=== PATIENT | male | born 1950 | race Caucasian/White ===

== ENCOUNTER 2019-02-25 09:36 | Day surgery (SDC) | payer OTHER, SELFPAY ==
--- NOTE | 2019-02-25 | PATH_ITS ---
[facility] Accession Number: [id number] . 01 Material submitted: . body - POLYP AT 35 . 01 Clinical history: . SCREENING COLONOSCOPY . 02 Diagnosis: Colon, Polyp at 35, Biopsy: Tubular adenoma. MRV/02/26/2019 . 02 Electronically signed: . Mackenzie Amin MD, Pathologist NPI- [id number] . 01 Gross description: . POLYP AT 35: Received in formalin is 1 fragment(s) of russ, soft tissue measuring 0.6 x 0.5 x 0.5 cm which is entirely submitted and submitted entirely in 1 cassette(s) /DMC /DMC . 02 Pathologist provided ICD-10: D12.6 . 02 CPT . 005359 Performed at: 01 [facility] [address] [place] [address], [place], [place] [id number] MD Clint Sigala MD Phone: [phone] Performed at: 02 [facility] [place] [address] [place], [place] [id number] MD Mackenzie Amin MD Phone: [phone]
[2019-02-25 10:20] VITALS: BMI 26.6
[2019-02-25 10:24] VITALS: BP 126/75; PULSE 58; RESP 16; TEMP 36.6; O2SAT 96
[2019-02-25] MEDS: SODIUM CHLORIDE 0.9% 1,000 ML 200 ML IV (10:29)
--- NOTE | 2019-02-25 10:43 | PM.HP.1 ---
History of Present Illness Date Patient Seen: 02/25/19 Time Patient Seen: 10:43 Chief complaint: [id number] SCREENING COLONOSCOPY Narrative: Patient here for screening colonoscopy. Last exam was 6 years ago. He has a history of polyps. 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 Patient History Medical History Depression (Acute) Diverticulosis (Acute) Murmur, cardiac (Acute) Spinal cord injury (Acute) Urinary frequency (Acute) Surgical History H/O spinal fusion (Acute) Social History household members: spouse Family & Social History Social History: household members spouse Meds Home Medications Medication Instructions Recorded Confirmed Type atorvastatin 40 mg PO QPM 02/24/19 02/25/19 History baclofen 30 mg PO BID 02/24/19 02/25/19 History cholecalciferol (vitamin D3) 1,000 unit PO DAILY 02/24/19 02/25/19 History [Vitamin D3] cyanocobalamin (vitamin B-12) 1,000 mcg PO DAILY 02/24/19 02/25/19 History [Vitamin B-12] fluoxetine 20 mg PO BID 02/24/19 02/25/19 History gabapentin 900 mg PO QID 02/24/19 02/25/19 History multivitamin 1 cap PO QAM 02/24/19 02/25/19 History omega 0-the-rqn-fish oil [Fish Oil] 1,000 mg PO QID 02/24/19 02/25/19 History oxycodone-acetaminophen [Percocet] 1 tab PO Q4-6H PRN 02/24/19 02/25/19 History psyllium husk 2 g PO QID 02/24/19 02/25/19 History Allergies Allergy/AdvReac Type Severity Reaction Status Date / Time No Known Drug Allergies Allergy Verified 02/25/19 10:14 Review of Systems Review of Systems All systems reviewed & are unremarkable except as noted in HPI and below Neurologic Comments: 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 Exam Vital Signs (past 8 hours): - 02/25/19 10:24 Temperature 97.8 F Pulse Rate 58 L Respiratory Rate 16 Blood Pressure 126/75 Pulse Oximetry 96 Oxygen Delivery Method Room Air Narrative Exam Narrative: Pleasant cooperative patient no apparent distress. Lungs are clear to auscultation. No rales or rhonchi. Heart regular rate and rhythm . Loud systolic harsh murmur heard best at the base without radiation into the neck. Abdomen is soft protuberant nontender without mass. No obvious hernias. Patient is alert and oriented x3. Assessment & Plan Assessment & Plan narrative: The patient for a screening colonoscopy. I have discussed the procedure with them. Risks of bleeding, perforation which would necessitate major operation, failure to find remove all lesions, the potential tattoo were all discussed. All questions were answered. They wished to proceed.
--- NOTE | 2019-02-25 10:47 | P.HP_ITS ---
History of Present Illness Date Patient Seen: 02/25/19 Time Patient Seen: 10:43 Chief complaint: [id number] SCREENING COLONOSCOPY Narrative: Patient here for screening colonoscopy. Last exam was 6 years ago. He has a history of polyps. 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 Patient History Medical History Depression (Acute) Diverticulosis (Acute) Murmur, cardiac (Acute) Spinal cord injury (Acute) Urinary frequency (Acute) Surgical History H/O spinal fusion (Acute) Social History household members: spouse Family & Social History Social History: household members spouse Meds Home Medications Medication Instructions Recorded Confirmed Type atorvastatin 40 mg PO QPM 02/24/19 02/25/19 History baclofen 30 mg PO BID 02/24/19 02/25/19 History cholecalciferol (vitamin D3) 1,000 unit PO DAILY 02/24/19 02/25/19 History [Vitamin D3] cyanocobalamin (vitamin B-12) 1,000 mcg PO DAILY 02/24/19 02/25/19 History [Vitamin B-12] fluoxetine 20 mg PO BID 02/24/19 02/25/19 History gabapentin 900 mg PO QID 02/24/19 02/25/19 History multivitamin 1 cap PO QAM 02/24/19 02/25/19 History omega 5-wkq-lcl-fish oil [Fish Oil] 1,000 mg PO QID 02/24/19 02/25/19 History oxycodone-acetaminophen [Percocet] 1 tab PO Q4-6H PRN 02/24/19 02/25/19 History psyllium husk 2 g PO QID 02/24/19 02/25/19 History Allergies Allergy/AdvReac Type Severity Reaction Status Date / Time No Known Drug Allergies Allergy Verified 02/25/19 10:14 Review of Systems Review of Systems All systems reviewed & are unremarkable except as noted in HPI and below Neurologic Comments: 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 Exam Vital Signs (past 8 hours): - 02/25/19 10:24 Temperature 97.8 F Pulse Rate 58 L Respiratory Rate 16 Blood Pressure 126/75 Pulse Oximetry 96 Oxygen Delivery Method Room Air Narrative Exam Narrative: Pleasant cooperative patient no apparent distress. Lungs are clear to auscultation. No rales or rhonchi. Heart regular rate and rhythm . Loud systolic harsh murmur heard best at the base without radiation into the neck. Abdomen is soft protuberant nontender without mass. No obvious hernias. Patient is alert and oriented x3. Assessment & Plan Assessment & Plan narrative: The patient for a screening colonoscopy. I have discussed the procedure with them. Risks of bleeding, perforation which would necessitate major operation, failure to find remove all lesions, the potential tattoo were all discussed. All questions were answered. They wished to proceed.
--- NOTE | 2019-02-25 10:50 | PM.PREOP ---
Pre-operative Note Interval Note History & Physical reviewed/Exam performed by Physician: Yes Changes to H&P: No ASA Class (for procedural sedation): II
--- NOTE | 2019-02-25 10:53 | PM.PREOP ---
Pre-operative Note Interval Note History & Physical reviewed/Exam performed by Physician: Yes Changes to H&P: No ASA Class (for procedural sedation): II
[2019-02-25] MEDS: MIDAZOLAM 5 MG/5 ML VIAL IV (11:00)
[2019-02-25] MEDS: fentaNYL 250 MCG/5 ML INJ IV (11:01)
--- NOTE | 2019-02-25 11:29 | PM.OP.ENDO ---
Operative Date/Time/Diagnoses Date of procedure: 02/25/19 Time of procedure: 11:30 Pre-op diagnosis: Screening exam. Post-op diagnosis: same (Diverticulosis scattered. Internal/external hemorrhoids. Single polyp at 35 cm) Procedure & Clinicians Study performed: Colonoscopy with hot snare polypectomy Same procedure as scheduled: Yes Indications: Screening. Last exam 6 years ago. Personal history of polyps. Surgeon: Philippe Quiroz Procedure Notes SCOAP/Timeout: Performed Procedure in detail: The patient was placed in the left lateral decubitus position and underwent IV sedation directed by the surgeon consisting of fentanyl and Versed. Digital exam was remarkable for visible external hemorrhoids and a decreased sphincter tone. The scope was inserted and advanced through the rectum into the Remaining colon( PATIENT HAS PARTIAL MALROTATION SO THE USUAL CURVES WERE NOT NOTED). The cecum was reached identified by the ileocecal valve . The scope was gradually brought out. One Polyp was found at 35 cm from the anal verge. It was removed with a hot snare.. The scope ultimately was brought into the rectum. I was unable to retroflex however. Therefore I slowly brought the scope through the anal canal. The patient appeared to have internal hemorrhoids as well as the visible external ones. The scope was removed and the patient tolerated the procedure well prep initially was suboptimal but with irrigation and suction it became adequate. Scope withdrawal time: 12 min(excludes snare time) Sedation minutes: 34 Findings: diverticulosis, internal hemorrhoids (And external as well) and polyp (One at 35 cm) Specimen(s): other (Polyps) Complications: none Recommendations: Colonscopy in 5 years Follow up: weeks Disposition: PACU
[2019-02-25 11:33] VITALS: BP 102/67; PULSE 59; RESP 12; TEMP 36.4; O2SAT 98
[2019-02-25 11:43] VITALS: BP 99/61; PULSE 60; RESP 11; O2SAT 97
[2019-02-25 11:47] VITALS: BP 98/64; PULSE 54; RESP 13; TEMP 36.3; O2SAT 95
[2019-02-25 11:55] VITALS: BP 107/63; PULSE 53; RESP 15; TEMP 36.4; O2SAT 95
[2019-02-25 12:14] VITALS: BP 104/64; PULSE 53; RESP 16; TEMP 36.4; O2SAT 94
--- NOTE | 2019-02-25 12:43 | SUR.PHASEI ---
Post procedure note PACU phase 2: VSS, patient easily arousable by soft voice. No complaints of pain. Abdomen soft. tolerating PO without any nausea. IV patent. Verbal handoff report given to Fany Bernard RN.
== END 2019-02-25 12:17 | disposition home or self-care (01) ==
PROVIDERS: PCP Internal Medicine; Visit Provider Specialist
PROC: 0DJD8ZZ Inspection of Lower Intestinal Tract, Via Natural or Artificial Opening Endoscopic (ICD-10-PCS; CPT 45378; principal; 2019-02-25 10:45)
DX: Z86.010 Personal history of colon polyps (principal); D12.6 Benign neoplasm of colon, unspecified; K57.30 Diverticulosis of large intestine without perforation or abscess without bleeding; K64.9 Unspecified hemorrhoids; K64.4 Residual hemorrhoidal skin tags; F32.9 Major depressive disorder, single episode, unspecified; R01.1 Cardiac murmur, unspecified
CPT/HCPCS: 45385; 99152; 99153; J2250; J3010

== ENCOUNTER 2020-08-03 16:25 | Emergency (ER) | payer MEDICARE, OTHER, SELFPAY | END 2020-08-03 16:34 | disposition left against medical advice (07) | LOC: ED 16:39 | PROVIDERS: Emergency Provider Emergency Medicine; PCP Internal Medicine | CPT/HCPCS: 99281 ==

== ENCOUNTER 2024-10-27 12:02 | Day surgery (SDC) | payer OTHER, SELFPAY ==
[2024-10-27] MEDS: LACTATED RINGERS 1,000 ML 42 ML IV (12:53)
--- NOTE | 2024-10-27 13:03 | PM.HP.IH.1 ---
History of Present Illness History of Present Illness Date Patient Seen: 10/27/24 Chief complaint: Screening Colonoscopy Narrative: Screening colonoscopy [facility] Medical History (Updated 08/18/20 @ 00:01 by ) Depression Spinal cord injury Urinary frequency Diverticulosis Murmur, cardiac Surgical History H/O spinal fusion Social History household members: spouse Meds Home Medications and Allergies Home Medications Medication Instructions Recorded Confirmed Type atorvastatin 40 mg tablet 40 mg PO QPM 02/24/19 02/25/19 History baclofen 10 mg tablet 30 mg PO BID 02/24/19 02/25/19 History cholecalciferol (vitamin D3) 25 1,000 unit PO DAILY 02/24/19 02/25/19 History mcg (1,000 unit) capsule (Vitamin D3) cyanocobalamin (vitamin B-12) 1,000 mcg PO DAILY 02/24/19 02/25/19 History 1,000 mcg tablet (Vitamin B-12) fluoxetine 20 mg capsule 20 mg PO BID 02/24/19 02/25/19 History gabapentin 300 mg capsule 900 mg PO QID 02/24/19 02/25/19 History multivitamin 1 cap PO QAM 02/24/19 02/25/19 History omega 9-inl-uof-fish oil 1,000 mg 1,000 mg PO QID 02/24/19 02/25/19 History (120 mg-180 mg) capsule (Fish Oil) oxycodone-acetaminophen 5 mg-325 1 tab PO Q4-6H PRN Pain (Scale 02/24/19 02/25/19 History mg tablet (Percocet) Score 1-3) psyllium husk 0.52 gram capsule 2 g PO QID 02/24/19 02/25/19 History sodium,potassium,mag sulfates 17.5 See Rx Instructions PO .COMPLEX 10/13/24 Rx gram-3.13 gram-1.6 gram oral soln #354 mL (Suprep Bowel Prep Kit) Allergies Allergy/AdvReac Type Severity Reaction Status Date / Time No Known Drug Allergies Allergy Verified 10/27/24 12:51 Exam Narrative Exam Narrative: Oropharynx free of lesions Chest clear to auscultation percussion Cardiac exam reveals no S3 or murmur Assessment & Plan Assessment & Plan narrative: Due for screening colonoscopy. Risks, benefits, alternatives have been explained. Time-Based Coding :: [TOTAL MINUTES] spent with patient and on the chart (including review of chart, obtaining history, exam, reviewing outside data, placing orders, documenting exam and treatment plan, and counseling patient) on [DATE]. [employer] Professor Document charge(s): No
--- NOTE | 2024-10-27 13:04 | PM.OP.COLON ---
Operative Date/Time/Diagnoses Date of procedure: 10/27/24 Pre-op diagnosis: See indication and findings Procedure & Clinicians Study performed: Colonoscopy Same procedure as scheduled: Yes Indications: Screening Surgeon: Familia Cho Procedure Notes Procedure in detail: After informed consent was obtained the patient was placed in left lateral decubitus position. The video colonoscope was introduced the rectum slowly advanced cecum. Preparation was good. On slow withdrawal mucosa was carefully examined. The scope was removed. The patient tolerated procedure well. Blood loss none Complications none Sedation mac Findings 1. Scattered diverticulosis of the left colon 2. Otherwise negative colonoscopy to cecum Mr. Darby should have his next colonoscopy in 5-10 years
[2024-10-27 13:10] VITALS: BP 142/71; PULSE 54; RESP 16; TEMP 36.1; O2SAT 97
[2024-10-27 13:34] VITALS: BP 114/57; PULSE 53; RESP 15; TEMP 36.6; O2SAT 94
[2024-10-27 13:39] VITALS: BP 129/67; PULSE 55; RESP 18; O2SAT 97
[2024-10-27 14:12] VITALS: BP 136/73; PULSE 53; TEMP 36.5; O2SAT 94
== END 2024-10-27 14:15 | disposition home or self-care (01) ==
PROVIDERS: PCP Physical Medicine & Rehabilitation Spinal Cord Injury Medicine; Referring Provider Internal Medicine Gastroenterology; Visit Provider Internal Medicine Gastroenterology
PROC: 0DJD8ZZ Inspection of Lower Intestinal Tract, Via Natural or Artificial Opening Endoscopic (ICD-10-PCS; CPT 45378; principal; 2024-10-27 13:30)
DX: Z12.11 Encounter for screening for malignant neoplasm of colon (principal); K57.30 Diverticulosis of large intestine without perforation or abscess without bleeding
CPT/HCPCS: 45378